=== PATIENT | female | born 1985 | race Two or more races ===

== ENCOUNTER 2016-08-25 07:05 | Emergency (ER) | payer MEDICAID ==
[2016-08-25 07:40] LABS: BASOPHILS 0.1 % (0.0-2.0); EOSINOPHILS 0.7 % (0-7); HEMATOCRIT 38.4 % (36.0-48.0); HEMOGLOBIN 12.6 g/dL (12-16); IMMATURE GRANULOCYTES 0.2 % (0-5); LYMPHOCYTES 18.9 % (15-50); MCH 29.6 pg (26.0-34.0); MCHC 32.8 g/dL (31.0-37.0); MCV 90.4 fL (80.0-100.0); MEAN PLATELET VOLUME 11.4 fL (7.4-10.4); NEUTROPHILS 73.1 % (40-80); RBC 4.25 10x6/uL (4.00-5.40); RDW 14.3 % (11.5-14.5)
[2016-08-25 07:41] LABS: PLATELET COUNT 189 10x3/uL (130-400)
[2016-08-25 07:51] LABS: HCG SERUM NEGATIVE (NEGATIVE)
== END 2016-08-25 09:04 | disposition home or self-care (01) ==
LOC: D.ER 07:05
PROVIDERS: Emergency Medicine
DX: N94.89 Other specified conditions associated with female genital organs and menstrual cycle (principal)

== ENCOUNTER 2017-01-14 09:14 | Emergency (ER) | payer OTHER | END 2017-01-14 10:42 | disposition home or self-care (01) | LOC: D.ER 09:14 | DX: O26.892 Other specified pregnancy related conditions, second trimester (principal); S30.0XXA Contusion of lower back and pelvis, initial encounter; W18.39XA Other fall on same level, initial encounter ==

== ENCOUNTER 2017-02-26 15:39 | Emergency (ER) | payer OTHER | END 2017-02-26 16:20 | disposition home or self-care (01) | LOC: D.ER 15:39 | DX: M77.12 Lateral epicondylitis, left elbow (principal) ==

== ENCOUNTER → 2017-03-17 14:50 | Outpatient (CLI) | payer OTHER ==
[2017-03-17 15:44] LABS: APPEARANCE CLEAR (CLEAR); BILIRUBIN NEGATIVE (NEGATIVE); COLOR YELLOW (YELLOW); GLUCOSE NEGATIVE (NEGATIVE); KETONE NEGATIVE (NEGATIVE); LEUKOCYTE ESTERASE NEGATIVE (NEGATIVE); NITRITE NEGATIVE (NEGATIVE); PROTEIN NEGATIVE (NEGATIVE); SPECIFIC GRAVITY 1.015 (1.005-1.020); UROBILINOGEN NORMAL (NORMAL)
== END | disposition home or self-care (01) ==
LOC: D.LDO 14:50
PROVIDERS: Obstetrics & Gynecology
DX: Z34.82 Encounter for supervision of other normal pregnancy, second trimester (principal); Z3A.27 27 weeks gestation of pregnancy

== ENCOUNTER → 2017-03-19 08:38 | Outpatient (CLI) | payer OTHER ==
--- NOTE | 2017-03-19 09:40 | NUR ---
Nutrition education for CHRISTOPHE: Pt reports she has been drinking a lot of juice and eating a lot of fruit. Pt is now drinking water and has cut out most of the fruit intake. Pt does eat 3 meals every day; however, she states they are not at consistent times due to her work schedule. Pt has been walking for exercise as much as she can. Reviewed CHO containing foods and the affect CHO have on glucose. Reviewed sample timed menu. Stressed the importance of meal timing and portion control. Reviewed portion sizes of common CHO foods. Pt has glucometer. Instructed pt on glucometer use. FSBS: 86 mg/dl fasting Provided pt with printed diet information and RDN name and phone number. Pt with very good understanding of information provided. RDN will be available if needed. Thank you for the consult.
== END | disposition home or self-care (01) ==
LOC: D.FANS 08:38
DX: O24.419 Gestational diabetes mellitus in pregnancy, unspecified control (principal)

== ENCOUNTER 2017-03-29 16:22 | Outpatient (CLI) | payer OTHER ==
[2017-03-29 17:19] LABS: APPEARANCE HAZY (CLEAR); BILIRUBIN NEGATIVE (NEGATIVE); COLOR YELLOW (YELLOW); GLUCOSE NEGATIVE (NEGATIVE); KETONE LARGE mg/dL (NEGATIVE); LEUKOCYTE ESTERASE NEGATIVE (NEGATIVE); NITRITE NEGATIVE (NEGATIVE); PH 5.5 (5.0-6.0); PROTEIN NEGATIVE (NEGATIVE); UROBILINOGEN NORMAL (NORMAL)
== END 2017-03-29 19:22 | disposition home or self-care (01) ==
LOC: D.LDO 16:22
PROVIDERS: Obstetrics & Gynecology
DX: Z34.83 Encounter for supervision of other normal pregnancy, third trimester (principal); Z3A.29 29 weeks gestation of pregnancy

== ENCOUNTER → 2017-04-11 11:20 | Outpatient (CLI) | payer OTHER | END | disposition home or self-care (01) | LOC: D.ER 11:20 → D.LDO 11:20 | DX: Z34.90 Encounter for supervision of normal pregnancy, unspecified, unspecified trimester (principal) ==

== ENCOUNTER → 2017-05-01 21:38 | Outpatient (CLI) | payer OTHER ==
[2017-05-01 22:20] LABS: APPEARANCE CLEAR (CLEAR); BILIRUBIN NEGATIVE (NEGATIVE); COLOR YELLOW (YELLOW); GLUCOSE NEGATIVE (NEGATIVE); KETONE NEGATIVE (NEGATIVE); LEUKOCYTE ESTERASE TRACE (NEGATIVE); NITRITE NEGATIVE (NEGATIVE); PROTEIN NEGATIVE (NEGATIVE); SPECIFIC GRAVITY 1.015 (1.005-1.020); UROBILINOGEN NORMAL (NORMAL)
[2017-05-01 22:23] LABS: BACTERIA FEW /hpf (NONE SEEN); MUCUS <1+ /lpf (NONE SEEN); RED CELLS - URINE RARE /hpf (0-5); WHITE CELLS - URINE 0-5 /hpf (0-5)
== END | disposition home or self-care (01) ==
LOC: D.LDO 21:38
PROVIDERS: Obstetrics & Gynecology
DX: O26.893 Other specified pregnancy related conditions, third trimester (principal); Z3A.34 34 weeks gestation of pregnancy

== ENCOUNTER → 2017-05-14 02:44 | Outpatient (CLI) | payer OTHER ==
[~2017-05-14 02:44] MED LIST: HYDROCODON-ACE1 EAC7 PO; IBUPROFEN600 MG PO
[2017-05-14 04:16] LABS: APPEARANCE HAZY (CLEAR); BACTERIA FEW /hpf (NONE SEEN); BILIRUBIN NEGATIVE (NEGATIVE); COLOR YELLOW (YELLOW); EPITHELIAL CELLS 0-5 /hpf (0-5); GLUCOSE NEGATIVE (NEGATIVE); KETONE NEGATIVE (NEGATIVE); NITRITE NEGATIVE (NEGATIVE); PROTEIN NEGATIVE (NEGATIVE); RED CELLS - URINE 0-5 /hpf (0-5); SPECIFIC GRAVITY 1.005 (1.005-1.020); UROBILINOGEN NORMAL (NORMAL); WHITE CELLS - URINE 0-5 /hpf (0-5)
== END ==
LOC: D.LDO 02:44
PROVIDERS: Obstetrics & Gynecology
DX: O26.893 Other specified pregnancy related conditions, third trimester (principal); Z3A.35 35 weeks gestation of pregnancy; R10.9 Unspecified abdominal pain

== ENCOUNTER 2017-05-18 01:57 | Outpatient (CLI) | payer OTHER | END 2017-05-18 03:14 | disposition home or self-care (01) | LOC: D.LDO 01:57 | DX: O26.893 Other specified pregnancy related conditions, third trimester (principal); Z3A.36 36 weeks gestation of pregnancy; N89.8 Other specified noninflammatory disorders of vagina ==

== ENCOUNTER → 2017-06-02 01:37 | Outpatient (CLI) | payer OTHER ==
[2017-06-02 02:04] LABS: APPEARANCE CLEAR (CLEAR); BILIRUBIN NEGATIVE (NEGATIVE); COLOR YELLOW (YELLOW); GLUCOSE NEGATIVE (NEGATIVE); KETONE NEGATIVE (NEGATIVE); NITRITE NEGATIVE (NEGATIVE); PROTEIN NEGATIVE (NEGATIVE); SPECIFIC GRAVITY 1.015 (1.005-1.020); UROBILINOGEN NORMAL (NORMAL)
== END | disposition home or self-care (01) ==
LOC: D.LDO 01:37
PROVIDERS: Obstetrics & Gynecology
DX: Z34.83 Encounter for supervision of other normal pregnancy, third trimester (principal); Z3A.38 38 weeks gestation of pregnancy

== ENCOUNTER 2017-06-04 05:06 | Inpatient (IN) | payer OTHER ==
[2017-06-04 05:40] VITALS: BP 108/65; BMI 33.0
[2017-06-04 07:10] LABS: HEMATOCRIT 32.7 % (36.0-48.0); HEMOGLOBIN 10.1 g/dL (12-16); MCH 26.6 pg (26.0-34.0); MCHC 30.9 g/dL (31.0-37.0); MCV 86.1 fL (80.0-100.0); RDW 16.7 % (11.5-14.5); WBC 5.8 10x3/uL (4.8-10.8)
[2017-06-04 07:11] LABS: PLATELET COUNT 150 10x3/uL (130-400)
[2017-06-04 12:25] LABS: APPEARANCE CLEAR (CLEAR); BILIRUBIN NEGATIVE (NEGATIVE); COLOR STRAW (YELLOW); GLUCOSE NEGATIVE (NEGATIVE); KETONE NEGATIVE (NEGATIVE); NITRITE NEGATIVE (NEGATIVE); PROTEIN NEGATIVE (NEGATIVE); SPECIFIC GRAVITY 1.005 (1.005-1.020); UROBILINOGEN NORMAL (NORMAL)
--- NOTE | 2017-06-04 18:15 | NUR ---
PT UP TO SHOWER. LINENS PROVIDED.
--- NOTE | 2017-06-04 19:00 | NUR ---
PT FINISHED WITH SHOWER. STATES PAIN TO PERINEUM "8" ON 0-10 PAIN SCALE. NORCO 5/325 GIVEN PO ORDERED. PT INSTRUCTED ON MED. VERBALIZES UNDERSTANDING. NEW ICE PACK TO PERINEUM FOR COMFORT.
--- NOTE | 2017-06-04 19:01 | NUR ---
PT STATES VOIDED SECOND TIME WHILE IN SHOWER.
--- NOTE | 2017-06-04 19:15 | NUR ---
REPORT GIVEN TO ON-COMING SHIFT.
--- NOTE | 2017-06-04 19:45 | NUR ---
RN TO BEDSIDE. PT SITTING IN HIGH FOWLERS POSITION WITH INFANT IN ARMS. VISITORS IN ROOM. PAIN 4/10 AT THIS TIME. PT REQUESTS FOR ASSESSMENT TO BE DONE AFTER VISITORS LEAVE. DENIES NEEDS AT THIS TIME. STATES THAT SHE STILL HAS ICE PACK TO PERINUM. INSTRUCTED ON USE OF CL FOR NEEDS, VERBALIZES UNDERSTANDING. BED IN LOW POSITION WITH UPPER SIDE RAILS RAISED X4. CL AND PHONE WITHIN REACH. WILL CONT TO MONITOR AND ASSIST PRN.
--- NOTE | 2017-06-04 20:36 | NUR ---
RN TO BEDSIDE FOR ROUNDS. PT LAUGHING AND CONVERSING WITH VISITORS. DENIES NEEDS AT THIS TIME. PT HOLDING IN HER ARMS AT THIS TIME. STATES SHE WILL USE CL FOR NEEDS AND NOTIFY RN WHEN VISITORS LEAVE FOR SHIFT ASSESSMENT AND VITAL SIGNS. BED IN LOW POSITION WITH UPPER SIDE RAILS RAISED X2. CL AND PHONE WITHIN REACH. WILL CONT TO MONITOR AND ASSIST PRN.
--- NOTE | 2017-06-04 21:30 | NUR ---
RN BACK TO BEDSIDE FOR ROUNDS. PT CONTINUES TO CONVERSE WITH VISITORS AND LAUGH. STATES THAT PAIN IS 5/10 AT THIS TIME ONLY TO PERINUM WITH OCCASIONAL ABD CRAMPING. NEW ICE PACK PROVIDED PER PT REQUEST. PT CONTINUES TO REQUEST THAT ASSESSMENT BE COMPLETED WHEN VISITOR LEAVE AND STATES THAT SHE WILL NOTIFY RN WHEN VISITORS LEAVE. BED IN LOW POSITION WITH UPPER SIDE RAILS RAISED X2. CL AND PHONE WITHIN REACH. WILL CONT TO MONITOR AND ASSIST PRN.
[2017-06-04 22:12] VITALS: BP 105/73
--- NOTE | 2017-06-04 22:12 | NUR ---
PT CALLS VIA CL REPORTING THAT VISITORS HAVE LEFT. RN TO BEDSIDE. PT REPORTS THAT SHE NEEDS TO VOID, UP TO BATHROOM, STEADY GAIT NOTED. PT REPORTS THAT PAIN WHILE AMBULATING AND VOIDING /, REQUESTS MEDICATION FOR PAIN. REPORTS TAHT PAIN IS PERINEAL BURNING AND STINGING AND ABD CRAMPING. MOTRIN GIVEN PER ORDER AND REQUEST. PT ALSO REQUESTS NORCO, PT NOTIFIED THAT IT WAS TOO SOON FOR NORCO TO BE TAKEN AT THIS TIME. REVIEWED ORDERS WITH PT, VERBALIZES UNDERSTANDING AND AGREEMENT. SHIFT ASSESSMENT COMPLETED WHEN PT BACK TO BED. VSS. FUNDUS FIRM U2 AND MIDLINE WITH MODERATE AMT RUBRA LOCHIA. ONE QUARTER SIZED CLOTS NOTED IN TOILET, NO CLOTS EXPRESSED WITH FUNDAL MASSAGE. BOWEL SOUNDS PRESENT AND ACTIVE X4 QUADRANTS, PT REPORTS THAT SHE IS PASSING FLATUS AND VOIDING WITHOUT DIFFICULTY. ADDITIONAL WASH CLOTHS AND DISPOSABLE PANTIES PROVIDED PER PT REQUEST. ICE WATER AND APPLE JUICE PROVIDED PER PT REQUEST. DENIES ADDITIONAL NEEDS AT THIS TIME. BED IN LOW POSITION WITH UPPER SIDE RAILS RAISED X2. CL AND PHONE WITHIN REACH. WILL CONT TO MONITOR AND ASSIST PRN.
--- NOTE | 2017-06-04 23:01 | NUR ---
PAIN REASSESSMENT COMPLETED. SITTING AT REST /10 WITH ACTIVITY 3-11/18. NEW ICE PACK GIVEN FOR LABIA SWELLING. DENIES NEEDS AT THIS TIME. BED IN LOW POSITION WITH UPPER SIDE RAILS RAISED X2. CL AND PHONE WITHIN REACH. WILL CONT TO MONITOR AND ASSIST PRN.
--- NOTE | 2017-06-05 00:18 | NUR ---
RN TO BEDSIDE FOR ROUNDS. PT BONDING WITH INFANT AT THIS TIME. REPORTS ABD CRAMPING /. ICE PACK TO PERINUM, REPORTS THAT SHE HAD BEEN UP AMBULATING IN ROOM AND BEEN TO VOID. DENIES NEEDS AT THIS TIME. BED IN LOW POSITION WITH UPPER SIDE RAILS RAISED X2. CL AND PHONE WITHIN REACH. WILL CONT TO MONITOR AND ASSIST PRN.
--- NOTE | 2017-06-05 01:54 | NUR ---
RN TO BEDSIDE FOR ROUNDS. PT RESTING QUIETLY WITH EYES CLOSED. RESPIRATIONS REGULAR AND UNLABORED, NO S/S OF DISTRESS NOTED. BED IN LOW POSITION WITH UPPER SIDE RAILS RAISED X2. CL AND PHONE WITHIN REACH. WILL CONT TO MONITOR AND ASSIST PRN.
--- NOTE | 2017-06-05 03:16 | NUR ---
RN TO BEDSIDE FOR ROUNDS. PT UP TO BATHROOM AT THIS TIME. PAIN 3, DENIES NEED FOR MEDICATION OR INTERVENTION AT THIS TIME. NEW ICE PACK PROVIDED. S/O AT BEDSIDE RESTING ON COUCH. DENIES NEEDS. BED IN LOW POSITION WITH UPPER SIDE RAILS RAISED X2. CL AND PHONE WITHIN REACH. WILL CONT TO MONITOR AND ASSIST PRN.
--- NOTE | 2017-06-05 05:18 | NUR ---
RN TO BEDSIDE FOR ROUNDS. PT IN SEMI FOWLERS POSITION ON RIGHT SIDE RESTING WITH EYES CLOSED. RESPIRATIONS REGULAR AND UNLABORED, NO S/S OF DISTRESS NOTED. S/O REMAINS AT BEDSIDE RESTING ON COUCH. BED IN LOW POSITION WITH UPPER SIDE RAILS RAISED X2. CL AND PHONE WITHIN REACH. WILL CONT TO MONITOR AND ASSIST PRN.
--- NOTE | 2017-06-05 06:21 | NUR ---
PT CALLS VIA CL. REPORTS THAT SHE GOT UP TO VOID. PAIN 9/10, PERINEAL BURNING AND STINGING, ABD CRAMPING. REQUESTS MOTRIN AND NORCO TOGETHER. NEW ICE PACK GIVEN. ICE WATER AND CRANBERRY JUICE GIVEN PER REQUEST. DENIES ADDITIONAL NEEDS. SPOUSE REMAINS AT BEDSIDE, SUPPORTIVE AND ATTENTATIVE TO PT AND HER NEEDS. BED IN LOW POSITION WITH UPPER SIDE RAILS RAISED X2. CL AND PHONE WITHIN REACH. WILL CONT TO MONITOR AND ASSIST PRN.
[2017-06-05 07:24] LABS: RAPID PLASMA REAGIN Non Reactive (Non Reactive)
[2017-06-05 07:26] LABS: BASOPHILS 0.1 % (0-2); EOSINOPHILS 0.5 % (0-7); HEMOGLOBIN 9.5 g/dL (12-16); IMMATURE GRANULOCYTES 0.2 % (0-5); LYMPHOCYTES 29.8 % (15-50); MCHC 31.7 g/dL (31.0-37.0); MCV 85.2 fL (80.0-100.0); NEUTROPHILS 62.4 % (40-80); RBC 3.52 10x6/uL (4.00-5.40); RDW 16.7 % (11.5-14.5)
[2017-06-05 07:42] LABS: PLATELET COUNT 107 10x3/uL (130-400); WBC 8.3 10x3/uL (4.8-10.8)
[2017-06-05 08:30] VITALS: BP 106/47
--- NOTE | 2017-06-05 08:30 | NUR ---
assessment done. pt up and about in room. infant in room.denies pain at this time. states voiding without problems and passing flatus. fundus u1 firm/ small lochia noted on pad.
--- NOTE | 2017-06-05 09:00 | NUR ---
dr vigil in room to see pt. no orders at this time.
--- NOTE | 2017-06-05 10:35 | NUR ---
ENTERED ROOM. PT RESTING IN BED. INFANT IN ROOM. DENIES NEEDS.
--- NOTE | 2017-06-05 12:18 | NUR ---
RINGS CALL LIGHT. REQUESTING PAIN MEDICATION- CO CRAMPING ABD AND BACK AND BURNING AT PERINEAL AREA. REQUESTS DAVID MEDICATION THAT SHE HAD PREVIOUSLY- STATES "IT WORKED" RATES PAIN AN 8 ON SCALE OF 0-10.
[2017-06-05 12:20] VITALS: BP 101/56
--- NOTE | 2017-06-05 13:15 | NUR ---
pt states that she would like to e discharged today with infant receiving d/c order from pedi. phoned dr vigil- new order received.
--- NOTE | 2017-06-05 13:30 | NUR ---
IV SALINE LOCK DISCONTINUED- CATH TIP INTACT- PRESSURE HELD AND BANDAIDE APPLIED.
[2017-06-05] MEDS ORDERED: IBUPROFEN600 MG PO (13:41)
[2017-06-05] MEDS ORDERED: HYDROCODON-ACE1 EAC7 PO (13:42)
--- NOTE | 2017-06-05 13:57 | NUR ---
VACCINE INFO ON FLU AND T-DAP GIVEN TO PT TO READ. PT REFUSES BOTH VACCINES.
--- NOTE | 2017-06-05 15:00 | NUR ---
discharge inst verbal and written given. pt prescription given, motrin and norco, pt med rec and drug data info given. pt health summary given. pfw pp discharge inst given. vag del discharge inst given. pt denies questions.
--- NOTE | 2017-06-05 15:20 | NUR ---
discharged home with . to auto via w/c.
--- NOTE | 2017-08-06 17:04 | DS ---
PATIENT:ZEHRA HO :83 MEDICAL RECORD: [id number] DISCHARGE SUMMARY ADMISSION DATE: 06/04/17 DISCHARGE DATE: 06/05/17 DATE OF ADMISSION: 06/04/2017 HOSPITAL COURSE: A 31-year-old G2, P1 at 39 weeks, admitted for augmentation of labor. The patient was noted to be O positive, group B strep negative, and rubella immune. PAST MEDICAL HISTORY: The patient had a past medical history significant for A1 gestational diabetes. PAST SURGICAL HISTORY: The patient had surgical history significant for an appendectomy. ALLERGIES: The patient reported no allergies. FAMILY HISTORY: Significant for apparent cardiovascular disease. SOCIAL HISTORY: The patient reported social history negative times 3. PHYSICAL EXAMINATION: VITAL SIGNS: On admit, vital signs were found to be stable. The patient was afebrile and normotensive. LUNGS: Clear to auscultation. CARDIOVASCULAR: Regular rate and rhythm. ABDOMEN: Uterus appropriately sized and nontender. EXTREMITIES: Lower extremities were free of erythema, swelling or Homans sign. LABORATORY DATA: Initial assessment revealed a category 1 tracing with moderate variability and patient noted to be christopher. ASSESSMENT AND PLAN: 1. At that time, term intrauterine at 39 weeks. 2. Augmentation of labor. The patient wishes. 3. A1 gestational diabetes. PLAN: Plan for Pitocin and hourly blood sugar checks and went in active labor. well-being at that time was reassuring. AROM was performed with clear fluid. The patient progressed to the second stage of labor and had a normal spontaneous vaginal delivery with second-degree laceration. Delivery note is as on the chart. The patient did well overnight on day #0, tolerating p.o. pain meds, general diet, ambulating and voiding freely. On the morning of day #1, the patient continued to do well. Vital signs were stable. The patient was afebrile. Hemoglobin was stable. Uterus was infraumbilical and nontender. The patient was tolerating general diet and p.o. pain meds. The patient was discharged home on day #1 with instructions to follow up in 4 weeks. TRANSINT:[id number] Voice Confirmation ID: [id number] DOCUMENT ID: [id number] DISCHARGE SUMMARY REPORT [id number] ZEHRA HO, MARTIN Valentin MD at 1704 CC: [id number] DICTATION DATE: 07/27/17 0322 TRANSPORT COMPANY MANAGER: 07/27/17 1135 DIS IN 06/05/17 [facility] [address] [place] [address]
== END 2017-06-05 15:20 | disposition home or self-care (01) | DRG 775 ==
LOC: D.LD 05:06
PROVIDERS: ADMIT Obstetrics & Gynecology
PROC: 10907ZC Drainage of Amniotic Fluid, Therapeutic from Products of Conception, Via Natural or Artificial Opening (ICD-10-PCS; principal; 2017-06-04)
PROC: 10E0XZZ Delivery of Products of Conception, External Approach (ICD-10-PCS; 2017-06-04)
PROC: 0KQM0ZZ Repair Perineum Muscle, Open Approach (ICD-10-PCS; 2017-06-04)
DX: O24.429 Gestational diabetes mellitus in childbirth, unspecified control (principal); Z3A.39 39 weeks gestation of pregnancy; Z37.0 Single live birth; O70.1 Second degree perineal laceration during delivery; O69.81X0 Labor and delivery complicated by cord around neck, without compression, not applicable or unspecified

== ENCOUNTER → 2018-07-12 19:08 | Outpatient (CLI) | payer MEDICAID ==
[2018-07-12 20:08] LABS: APPEARANCE CLEAR (CLEAR); COLOR YELLOW (YELLOW)
[2018-07-12 20:09] LABS: BILIRUBIN NEGATIVE (NEGATIVE); GLUCOSE NEGATIVE (NEGATIVE); KETONE NEGATIVE (NEGATIVE); NITRITE NEGATIVE (NEGATIVE); PROTEIN NEGATIVE (NEGATIVE); RED CELLS - URINE 0-5 /hpf (0-5); UROBILINOGEN NORMAL (NORMAL)
[2018-07-12 20:10] LABS: BACTERIA MANY /hpf (NONE SEEN)
[2018-07-12 20:11] LABS: AMORPHOUS SEDIMENT <1+ /lpf (NONE SEEN)
== END | disposition home or self-care (01) ==
LOC: D.LDO 19:08
PROVIDERS: Obstetrics & Gynecology
DX: O26.893 Other specified pregnancy related conditions, third trimester (principal); Z3A.30 30 weeks gestation of pregnancy

== ENCOUNTER → 2018-07-15 15:33 | Outpatient (CLI) | payer MEDICAID | END | disposition home or self-care (01) | LOC: D.LDO 15:33 | DX: O26.893 Other specified pregnancy related conditions, third trimester (principal); Z3A.30 30 weeks gestation of pregnancy ==

== ENCOUNTER → 2018-07-17 13:35 | Outpatient (CLI) | payer MEDICAID | END | disposition home or self-care (01) | LOC: D.LDO 13:35 | DX: O36.5930 Maternal care for other known or suspected poor fetal growth, third trimester, not applicable or unspecified (principal); Z3A.30 30 weeks gestation of pregnancy ==

== ENCOUNTER → 2018-07-20 16:19 | Outpatient (CLI) | payer MEDICAID | END | disposition home or self-care (01) | LOC: D.LDO 16:19 | DX: O26.893 Other specified pregnancy related conditions, third trimester (principal); Z3A.31 31 weeks gestation of pregnancy ==

== ENCOUNTER → 2018-07-23 12:12 | Outpatient (CLI) | payer MEDICAID | END | disposition home or self-care (01) | LOC: D.LDO 12:12 | DX: O36.5930 Maternal care for other known or suspected poor fetal growth, third trimester, not applicable or unspecified (principal); Z3A.31 31 weeks gestation of pregnancy ==

== ENCOUNTER → 2018-07-29 10:56 | Outpatient (CLI) | payer MEDICAID ==
[2018-07-29 12:03] LABS: BASOPHILS 0.2 % (0-2); EOSINOPHILS 0.5 % (0-7); HEMATOCRIT 33.7 % (36.0-48.0); HEMOGLOBIN 10.6 g/dL (12-16); IMMATURE GRANULOCYTES 0.4 % (0-5); LYMPHOCYTES 28.1 % (15-50); MCH 27.7 pg (26.0-34.0); MCHC 31.5 g/dL (31.0-37.0); MEAN PLATELET VOLUME 12.8 fL (7.4-10.4); MONOCYTES 7.4 % (2-11); NEUTROPHILS 63.4 % (40-80); RBC 3.83 10x6/uL (4.00-5.40); RDW 15.5 % (11.5-14.5); WBC 5.5 10x3/uL (4.8-10.8)
[2018-07-29 12:15] LABS: PLATELET COUNT 138 10x3/uL (130-400)
[2018-07-29 12:19] LABS: ALBUMIN 2.4 g/dL (3.4-5.0); ALKALINE PHOSPHATASE 70 U/L (46-116); ALT (SGPT) 15 U/L (10-68); BILIRUBIN - TOTAL 0.17 mg/dL (0.2-1.3); CALC OSMOLALITY 275 mosm/kg (275-300); CALCIUM 7.9 mg/dL (8.5-10.1); CARBON DIOXIDE 23.3 mmol/L (21.0-32.0); CHLORIDE - SERUM 107 mmol/L (98-107); CREATININE - SERUM 0.4 mg/dL (0.6-1.3); GLUCOSE 98 mg/dL (74-106); POTASSIUM - SERUM 3.6 mmol/L (3.5-5.1); PROTEIN - SERUM 5.9 g/dL (6.4-8.2); SODIUM 139 mmol/L (136-145); UREA NITROGEN 7 mg/dL (7-18); eGFR NON AFRICAN AMERICAN > 90 mL/min (90-120)
== END | disposition home or self-care (01) ==
LOC: D.LDO 10:56
PROVIDERS: Obstetrics & Gynecology
DX: O26.893 Other specified pregnancy related conditions, third trimester (principal); Z3A.32 32 weeks gestation of pregnancy

== ENCOUNTER 2018-08-19 00:20 | Outpatient (CLI) | payer MEDICAID | END 2018-08-19 01:02 | disposition home or self-care (01) | LOC: D.LDO 00:20 | DX: O26.893 Other specified pregnancy related conditions, third trimester (principal); Z3A.35 35 weeks gestation of pregnancy ==

== ENCOUNTER 2018-09-13 08:41 | Inpatient (IN) | payer MEDICAID ==
[~2018-09-13] VITALS: Ht 152.4 cm; Wt 78.5 kg
[2018-09-13 09:13] LABS: APPEARANCE CLEAR (CLEAR); COLOR YELLOW (YELLOW)
[2018-09-13 09:14] LABS: BILIRUBIN NEGATIVE (NEGATIVE); GLUCOSE NEGATIVE (NEGATIVE); KETONE NEGATIVE (NEGATIVE); NITRITE NEGATIVE (NEGATIVE); PROTEIN NEGATIVE (NEGATIVE); UROBILINOGEN NORMAL (NORMAL)
[2018-09-13] MEDS ORDERED: PREPLUS CA-FE1 EACH PO (10:38)
[2018-09-13 10:39] VITALS: BP 113/57; Ht 152.4 cm; Wt 78.5 kg
[2018-09-13 10:47] LABS: HEMATOCRIT 34.2 % (36.0-48.0); MCH 26.8 pg (26.0-34.0); MCHC 32.2 g/dL (31.0-37.0); MCV 83.4 fL (80.0-100.0); PLATELET COUNT 112 10x3/uL (130-400); RDW 17.1 % (11.5-14.5); WBC 7.6 10x3/uL (4.8-10.8)
[2018-09-13 10:59] LABS: UDS - AMPHET NEGATIVE QUAL (NEGATIVE); UDS - BARB NEGATIVE QUAL (NEGATIVE); UDS - BENZO NEGATIVE QUAL (NEGATIVE); UDS - COCAINE NEGATIVE QUAL (NEGATIVE); UDS - OPIATE NEGATIVE QUAL (NEGATIVE); UDS - PCP NEGATIVE QUAL (NEGATIVE); UDS - THC NEGATIVE QUAL (NEGATIVE)
[2018-09-13 21:29] VITALS: BP 99/54
[2018-09-14 06:14] LABS: BASOPHILS 0.1 % (0-2); EOSINOPHILS 0.4 % (0-7); HEMATOCRIT 30.3 % (36.0-48.0); HEMOGLOBIN 9.5 g/dL (12-16); IMMATURE GRANULOCYTES 0.4 % (0-5); LYMPHOCYTES 16.8 % (15-50); MCH 26.6 pg (26.0-34.0); MCHC 31.4 g/dL (31.0-37.0); MCV 84.9 fL (80.0-100.0); MONOCYTES 7.7 % (2-11); NEUTROPHILS 74.6 % (40-80); RBC 3.57 10x6/uL (4.00-5.40); RDW 17.4 % (11.5-14.5); WBC 9.1 10x3/uL (4.8-10.8)
[2018-09-14 06:15] LABS: PLATELET COUNT 84 10x3/uL (130-400)
[2018-09-14 08:08] LABS: PLATELET ESTIMATE DECREASED
[2018-09-14 08:10] LABS: ANISOCYTOSIS OCC
[2018-09-14] MEDS ORDERED: IBUPROFEN800 MG PO (18:29)
[2018-09-14] MEDS ORDERED: ACETAMINOPHEN325 MG PO (18:30)
[2018-09-15 07:24] LABS: RAPID PLASMA REAGIN Non Reactive (Non Reactive)
== END 2018-09-14 19:24 | disposition home or self-care (01) | DRG 806 ==
LOC: D.LDO 08:41 → D.LD 10:45
PROVIDERS: ADMIT Obstetrics & Gynecology
PROC: 10E0XZZ Delivery of Products of Conception, External Approach (ICD-10-PCS; principal; 2018-09-13)
PROC: 10E0XZZ Delivery of Products of Conception, External Approach (ICD-10-PCS; 2018-09-13)
DX: O75.89 Other specified complications of labor and delivery (principal); O99.12 Other diseases of the blood and blood-forming organs and certain disorders involving the immune mechanism complicating childbirth; Z37.0 Single live birth; O42.92 Full-term premature rupture of membranes, unspecified as to length of time between rupture and onset of labor; Z3A.39 39 weeks gestation of pregnancy

== ENCOUNTER 2020-03-18 12:32 | Emergency (ER) | payer SELFPAY ==
[~2020-03-18] VITALS: Ht 152.4 cm; Wt 59.1 kg
[~2020-03-18 12:32] MED LIST changes: +ACETAMINOPHEN325 MG PO; +IBUPROFEN800 MG PO; +PREPLUS CA-FE1 EACH PO
[2020-03-18 12:37] VITALS: Ht 152.4 cm; Wt 59.1 kg
[2020-03-18 12:53] LABS: BILIRUBIN NEGATIVE (NEGATIVE); GLUCOSE NEGATIVE (NEGATIVE); KETONE NEGATIVE (NEGATIVE); NITRITE NEGATIVE (NEGATIVE); UROBILINOGEN NORMAL (NORMAL)
[2020-03-18 12:56] LABS: HCG URINE NEGATIVE (NEGATIVE)
[2020-03-18 13:23] LABS: BASOPHILS 0.1 % (0-2); EOSINOPHILS 0 % (0-7); HEMATOCRIT 35.6 % (36.0-48.0); HEMOGLOBIN 11.4 g/dL (12-16); IMMATURE GRANULOCYTES 0.3 % (0-5); LYMPHOCYTES 15.6 % (15-50); MCH 19.1 pg (26.0-34.0); MCV 59.7 fL (80.0-100.0); MONOCYTES 9.6 % (2-11); NEUTROPHILS 74.4 % (40-80); PLATELET COUNT 271 10x3/uL (130-400); RBC 5.96 10x6/uL (4.00-5.40); RDW 15.7 % (11.5-14.5); WBC 7.4 10x3/uL (4.8-10.8)
[2020-03-18 13:26] LABS: APTT 37.7 SECONDS (22.8-39.4); CALC OSMOLALITY 278 mosm/kg (275-300); CALCIUM 8.6 mg/dL (8.5-10.1); CARBON DIOXIDE 26.5 mmol/L (21.0-32.0); CHLORIDE - SERUM 102 mmol/L (98-107); CREATININE - SERUM 0.7 mg/dL (0.6-1.3); GLUCOSE 133 mg/dL (74-106); INR 1.13 (0.85-1.17); POTASSIUM - SERUM 3.6 mmol/L (3.5-5.1); PROTIME 14.4 SECONDS (11.6-15.0); SODIUM 139 mmol/L (136-145); UREA NITROGEN 10 mg/dL (7-18); eGFR NON AFRICAN AMERICAN > 90 mL/min (90-120)
[2020-03-18 13:42] LABS: ALBUMIN 3.5 g/dL (3.4-5.0); ALKALINE PHOSPHATASE 34 U/L (30-120); ALT (SGPT) 24 U/L (10-68); CREATINE KINASE 29 UL (21-215); PRO BNP 15 pg/mL (0-125); PROTEIN - SERUM 7.9 g/dL (6.4-8.2)
[2020-03-18 13:43] LABS: TROPONIN-I < 0.017 ng/mL (0.000-0.060)
[2020-03-18 15:45] LABS: % SATURATION 5 % (15-55); IRON 14 ug/dl (35-150); TOTAL IRON BIND CAPACITY 246 ug/dl (260-445); UNSAT IRON BIND CAPACITY 232 ug/dl (150-375)
[2020-03-18] MEDS ORDERED: FERROUS SULFAT325 MG PO (16:21)
[2020-03-18] MEDS ORDERED: FOLIC ACID0.8 MG PO (16:21)
[2020-03-18 18:46] VITALS: BP 124/82
== END 2020-03-18 16:40 | disposition home or self-care (01) ==
LOC: D.ER 12:32 → EDBD 12:32 → D.ER 16:40
PROVIDERS: Family Medicine
DX: R53.1 Weakness (principal); D64.9 Anemia, unspecified; D50.9 Iron deficiency anemia, unspecified; E11.9 Type 2 diabetes mellitus without complications; R05 Cough

== ENCOUNTER → 2020-10-05 03:54 | Outpatient (CLI) | payer SELFPAY ==
[2020-03-18 12:37] VITALS: BMI 25.4
[~2020-10-05 03:54] MED LIST changes: +FERROUS SULFAT325 MG PO; +FOLIC ACID0.8 MG PO
== END | disposition home or self-care (01) ==
LOC: D.LABREF 03:54
PROVIDERS: ATTEND Legal Medicine
DX: D50.8 Other iron deficiency anemias (principal)

== ENCOUNTER → 2020-10-11 19:45 | Outpatient (CLI) | payer SELFPAY ==
[2020-03-18 12:37] VITALS: BMI 25.4
== END | disposition home or self-care (01) ==
LOC: D.LABREF 19:45
PROVIDERS: ATTEND Legal Medicine
DX: D50.8 Other iron deficiency anemias (principal)